=== PATIENT | female | born 1975 | race Two or more races ===

== ENCOUNTER 2020-01-03 11:30 | Inpatient (IN) | payer OTHER ==
[~2020-01-03] VITALS: Ht 157.5 cm; Wt 65.3 kg
[2020-01-08] MEDS ORDERED: ABATRON LIQUID474 ML (08:04)
[2020-01-09] MEDS ORDERED: IBU800 MG PO (08:06)
[2020-01-09] MEDS ORDERED: SIMETHICONE80 MG PO (08:06)
[2020-01-09] MEDS ORDERED: COLACE100 MG PO (08:06)
== END 2020-01-09 09:41 | disposition home or self-care (01) | DRG 743 ==
LOC: O/R 01-06 05:33 → OB/GYN 01-06 05:33 → SURH 01-06 11:30 → OB/GYN 01-06 13:25
PROVIDERS: Urology; ADMIT Obstetrics & Gynecology; ATTEND Obstetrics & Gynecology
PROC: 0UB50ZZ Excision of Right Fallopian Tube, Open Approach (ICD-10-PCS; 2020-01-06)
PROC: 0T788DZ Dilation of Bilateral Ureters with Intraluminal Device, Via Natural or Artificial Opening Endoscopic (ICD-10-PCS; 2020-01-06)
PROC: 0UT90ZZ Resection of Uterus, Open Approach (ICD-10-PCS; principal; 2020-01-06 19:30)
PROC: 0UB00ZZ Excision of Right Ovary, Open Approach (ICD-10-PCS; 2020-01-06 19:30)
DX: D25.1 Intramural leiomyoma of uterus (principal); D25.0 Submucous leiomyoma of uterus; D25.2 Subserosal leiomyoma of uterus; N72 Inflammatory disease of cervix uteri; N83.291 Other ovarian cyst, right side